=== PATIENT | male | born 1995 | race Caucasian/White ===

== ENCOUNTER 2024-09-08 13:21 | Emergency (ER) | payer MEDICAID ==
[~2024-09-08] VITALS: Ht 154.9 cm; Wt 86.0 kg
[2024-09-08 13:31] VITALS: BP 144/96; TEMP 98.6; O2SAT 98
[2024-09-08 13:32] VITALS: PULSE 82; RESP 18; O2SAT 99
[2024-09-08] MEDS ORDERED: LIDO700A30 TP (16:32)
[2024-09-08] MEDS ORDERED: NAPR-681 MT (16:32)
== END 2024-09-08 17:29 | disposition home or self-care (01) ==
LOC: ER 13:33
DX: M54.2 Cervicalgia (principal); M54.9 Dorsalgia, unspecified
CPT/HCPCS: 99282